=== PATIENT | male | born 1955 | race Caucasian/White ===

== ENCOUNTER → 2016-06-08 | Outpatient (CLI) | payer OTHER ==
[~2016-06-08] MED LIST: ASPI-983 PO; ASPI-999 PO; ATOR80TA64 PO; ATOR80TA76 PO; CLOP75TA28 PO; CLOP75TA69 PO; FENO54TA PO; FLUT9.9S NS; GABA-490 PO; GABA800T2 PO; HCT25T PO; HYDR-707 PO; LISI10TA PO; LISI10TA2 PO; METH500T7 PO; METO-270 PO; METO-351 PO; OMEP40CA36 PO; POTA8TAB6 PO; SIMV80TA3 PO; TRAM50TA2 PO
--- OUTSIDE RECORDS SUMMARY | 2016-06-08 10:03 | XMS REPORT | Continuity of Care Document ---
Author Author [facility] Organization [facility] Address Unknown Phone Unavailable Care Team Providers Care Physician Extender Name Role Phone RENU NEWMAN DO PCP Insurance Providers Payer Name Policy Number Subscriber Name Relationship Self Pay Kailash Newton 18 Self / Same As Patient Advance Directives Directive Response Recorded Date/Time Advance Directives No 02/26/16 2:39pm Health Care Power of Sheetmetal Trades Worker No 02/26/16 2:39pm Organ Donor No 02/26/16 2:39pm Resuscitation Status Full Code 02/26/16 2:39pm Chief Complaint and Reason for Visit Chief Complaint CHEST PAIN CAD S/P CORONARY STENT PLACEMENT Reason for Visit Chest pain Problems Active Problems Medical Problem Onset Date Status Angina at rest Unknown Acute Chest pain Unknown Acute Medications Current Home Medications Medication Dose Units Route Directions Days/Qty Instructions Start Date Fenofibrate (Lofibra) 54 Mg 54 Mg Oral Bedtime 02/23/13 Gabapentin 400 Mg 800 Mg Oral Four Times Daily TAKES 2 (400 MG) CAPSULES 02/05/16 Methocarbamol 500 Mg 500 Mg Oral Daily as needed for Muscle Spasms 02/05/16 Aspirin 81 Mg 81 Mg Oral Daily 02/26/16 Atorvastatin Calcium 80 Mg 80 Mg Oral Bedtime 02/26/16 Clopidogrel Bisulfate 75 Mg 75 Mg Oral Bedtime 02/26/16 Metoprolol Succinate 25 Mg 25 Mg Oral Daily 02/26/16 Tramadol Hcl 50 Mg 50-100 Mg Oral Three Times A Day as needed for Pain 02/26/16 Lisinopril 10 Mg 10 Mg Oral Bedtime 02/26/16 Fluticasone Propionate 9.9 Ml 2 Sprays Nasal Daily as needed for Allergies 02/26/16 Omeprazole 40 Mg 40 Mg Oral Daily as needed for Heartburn 02/26/16 Past Home Medications Medication Directions Ordered Status Gabapentin 800 Mg Tablet, 1 Each Oral Four Times Daily 02/23/13 Discontinued Hydrochlorothiazide 25 Mg Tablet, 25 Mg Oral Daily 02/23/13 Discontinued Potassium Chloride 8 Meq Tablet.sa, 8 Meq Oral Daily 02/23/13 Discontinued Lisinopril 10 Mg Tablet, 10 Mg Oral Daily 02/23/13 Discontinued Simvastatin 80 Mg Tablet, 80 Mg Oral Bedtime 02/23/13 Discontinued Acetaminophen/Hydrocodone Bitart 1 Each Tablet, 1-2 Each Oral Q 4 - 6 Hr Prn as needed for Pain 02/24/13 Discontinued Tramadol Hcl 50 Mg Tablet, 50-100 Mg Oral Three Times A Day as needed for Pain 02/05/16 Discontinued Tramadol Hcl 50 Mg Tablet, 50-100 Mg Oral Three Times A Day as needed for Pain 02/07/16 Discontinued Clopidogrel Bisulfate 75 Mg Tablet, 75 Mg Oral Daily 02/07/16 Discontinued Metoprolol Succinate 25 Mg Tab.er.24h, 25 Mg Oral Daily 02/07/16 Discontinued Aspirin 81 Mg Tab.chew, 81 Mg Oral Daily 02/07/16 Discontinued Atorvastatin Calcium 80 Mg Tablet, 80 Mg Oral Daily 02/07/16 Discontinued Social History Social History Problem Response Recorded Date/Time Alcohol Use Denies Use 02/26/2016 2:39pm Recreational Drug Use Y CIGARETTES 1 PACK/ DAY 02/26/2016 2:39pm Recent Foreign Travel No 02/26/2016 2:39pm Recent Infectious Disease Exposure No 02/26/2016 2:39pm Smoking Status Current Everyday Smoker 02/26/2016 2:39pm Type Used Cigarettes 02/27/2016 5:00pm Recent Hopitalizations No 02/26/2016 2:39pm Query Response Start Date Stop Date Smoking Status Current Everyday Smoker Hospital Discharge Instructions Patient Instructions Physician Instructions Patient Instructions: Follow up appt with Dr. Mathews in one week Care Plan Patient Instructions:: Follow up appt with Dr. Mathews in one week Plan of Care Discharge Date 02/27/16 4:45pm Disposition 01 HOME, SELF-CARE Instructions/Education Provided Chest Pain (DC) Forms Provided Follow-Up Fax Prescriptions See Medication Section Referrals Dr. Mathews (Unspecified) - 1 Week Reason(s) for Referral: Chest pain Care Plan and Goals See Discharge Instructions Section Functional Status Query Response Date Recorded Patient Orientation Person Place Time February 27, 2016 5:00pm Patient Orientation Person Place Time Situation Eyes Open February 27, 2016 5:00pm Comprehension Ability Understands Concepts February 26, 2016 9:00pm Allergies, Adverse Reactions, Alerts Allergen Type Severity Reaction Status Last Updated FLU SHOT Allergy Unknown Active 02/26/16 Immunizations No immunization records. Vital Signs Acute Vital Signs Vital Response Date/Time Temperature (Fahrenheit) 97.0 degrees F (97.6 - 99.5) 02/27/2016 4:28pm Temperature (Calculated Celsius) 36.63784 degrees C (36.4 - 37.5) 02/27/2016 4:28pm Temperature Source Tympanic 02/27/2016 4:28pm Pulse Rate (adult) 71 bpm (60 - 90) 02/27/2016 4:28pm Respiratory Rate 16 bpm (12 - 24) 02/27/2016 4:28pm O2 Sat by Pulse Oximetry 97 % (88 - 100) 02/27/2016 4:28pm Blood Pressure 108/81 mm Hg 02/27/2016 4:28pm Blood Pressure Mean 90 mm Hg 02/27/2016 4:28pm Pain Numeric Pain Scale 0-No Pain 02/27/2016 4:45pm Height (Feet) 5 feet 02/26/2016 2:39pm Height (Inches) 10.00 inches 02/26/2016 2:39pm Height (Calculated Centimeters) 177.975502 cm 02/26/2016 2:39pm Weight (Pounds) 203 pounds 02/27/2016 6:00am Weight (Ounces) 0.0 oz 02/26/2016 2:39pm Weight (Calculated Grams) 66566.252 gm 02/27/2016 6:00am Weight (Calculated Kilograms) 92.399636 kilograms 02/27/2016 6:00am Calculated BMI 29.3 02/26/2016 2:39pm Capillary Refill Capillary Refill Less Than 3 Seconds 02/26/2016 9:00pm Results Laboratory Results Test Name Result Units Flags Reference Collection Date/Time Result Date/ Time Comments White Blood Count 9.4 10^3/uL 4.3-11.0 02/06/2016 4:05am 02/06/2016 4: 52am Red Blood Count 5.47 10^6/uL 4.35-5.85 02/06/2016 4:05am 02/06/2016 4: 52am Hemoglobin 16.4 G/DL 13.3-17.7 02/06/2016 4:05am 02/06/2016 4:52am Hematocrit 47 % 40-54 02/06/2016 4:05am 02/06/2016 4:52am Mean Corpuscular Volume 87 FL 80-99 02/06/2016 4:05am 02/06/2016 4: 52am Mean Corpuscular Hemoglobin 30 PG 25-34 02/06/2016 4:05am 02/06/2016 4: 52am Mean Corpuscular Hemoglobin Concent 35 G/DL 32-36 02/06/2016 4:05am 4:52am Red Cell Distribution Width 12.9 % 10.0-14.5 02/06/2016 4:05am 2015 4:52am Platelet Count 229 10^3/uL 130-400 02/06/2016 4:05am 02/06/2016 4:52am Mean Platelet Volume 11.2 FL H 7.4-10.4 02/06/2016 4:05am 02/06/2016 4: 52am Neutrophils (%) (Auto) 49 % 42-75 02/06/2016 4:05am 02/06/2016 4:52am Lymphocytes (%) (Auto) 32 % 12-44 02/06/2016 4:05am 02/06/2016 4:52am Monocytes (%) (Auto) 10 % 0-12 02/06/2016 4:05am 02/06/2016 4:52am Eosinophils (%) (Auto) 9 % 0-10 02/06/2016 4:05am 02/06/2016 4:52am Basophils (%) (Auto) 0 % 0-10 02/06/2016 4:05am 02/06/2016 4:52am Neutrophils # (Auto) 4.6 X 10^3 1.8-7.8 02/06/2016 4:05am 02/06/2016 4: 52am Lymphocytes # (Auto) 3.0 X 10^3 1.0-4.0 02/06/2016 4:05am 02/06/2016 4: 52am Monocytes # (Auto) 0.9 X 10^3 0.0-1.0 02/06/2016 4:05am 02/06/2016 4: 52am Eosinophils # (Auto) 0.9 10^3/uL H 0.0-0.3 02/06/2016 4:05am 02/06/2016 4 :52am Basophils # (Auto) 0.0 10^3/uL 0.0-0.1 02/06/2016 4:05am 02/06/2016 4: 52am Prothrombin Time 13.9 SEC 12.2-14.7 02/05/2016 3:50pm 02/05/2016 4: 39pm INR Comment 1.1 0.8-1.4 02/05/2016 3:50pm 02/05/2016 4:39pm INTERPRETIVE DATA SUGGESTED THERAPEUTIC RANGE FOR INR'S: VENOUS THROMBOSIS, PULMONARY EMBOLISM, OR PREVENTION OF SYSTEMIC EMBOLISM (EG. IN ATRIAL FIBRILLATION): 2.0 - 3.0 MECHANICAL PROSTHETIC HEART VALVES: 2.5 - 3.5* *NOTE: INR'S UP TO 4.5 MAY BE NECESSARY IN SELECTED GROUPS OF HIGH RISK PATIENTS. [employer] CONSENSUS CONFERENCE ON ANTITHROMBOTIC THERAPY (2000). Activated Partial Thromboplast Time 28 SEC 24-35 02/05/2016 3:50pm 4:39pm D-Dimer < 0.27 UG/ML 0.00-0.49 02/05/2016 3:50pm 02/05/2016 4:39pm Sodium Level 137 MMOL/L 135-145 02/07/2016 4:10am 02/07/2016 5:15am Potassium Level 3.9 MMOL/L 3.6-5.0 02/07/2016 4:10am 02/07/2016 5:15am Chloride Level 105 MMOL/L 98-107 02/07/2016 4:10am 02/07/2016 5:15am Carbon Dioxide Level 22 MMOL/L 21-32 02/07/2016 4:10a02/07/2016 5: 15am Anion Gap 10 MMOL/L 5-14 02/07/2016 4:10a02/07/2016 5:15am Blood Urea Nitrogen 10 MG/DL 7-18 02/07/2016 4:10a02/07/2016 5:15am Creatinine 1.11 MG/DL 0.60-1.30 02/07/2016 4:10a02/07/2016 5:15am BUN/Creatinine Ratio 9 02/07/2016 4:10a02/07/2016 5:15am Estimat Glomerular Filtration Rate > 60 02/07/2016 4:10a2015 5:15am GFR INTERPRETIVE DATA UNITS FOR ESTIMATED GFR (eGFR): mL/min/1.73 M2 REFERENCE RANGE FOR ESTIMATED GFR (eGFR) eGFR NORMAL eGFR >60 MODERATELY DECREASED eGFR 30-59 SEVERLY DECREASED eGFR 15-29 KIDNEY FAILURE <15 (OR DIALYSIS) Glucose Level 90 MG/DL 70-105 02/07/2016 4:10a02/07/2016 5:15am Calcium Level 8.5 MG/DL 8.5-10.1 02/07/2016 4:10a02/07/2016 5:15am Magnesium Level 1.7 MG/DL L 1.8-2.4 02/07/2016 4:10a02/07/2016 5:15am Total Bilirubin 0.6 MG/DL 0.1-1.0 02/06/2016 4:05am 02/06/2016 5:20am Alkaline Phosphatase 42 U/L 40-136 02/06/2016 4:05am 02/06/2016 5:20am Aspartate Amino Transf (AST/SGOT) 28 U/L 5-34 02/06/2016 4:05am 2015 5:20am Alanine Aminotransferase (ALT/SGPT) 31 U/L 0-55 02/06/2016 4:05am 02/05 5:20am Total Creatine Kinase 132 U/L 30-200 02/05/2016 3:50pm 02/05/2016 4: 35pm Creatine Kinase MB 1.7 NG/ML <6.6 02/05/2016 3:50pm 02/05/2016 4:43pm Troponin I < 0.30 NG/ML <0.30 02/05/2016 3:50pm 02/05/2016 4:43pm Myoglobin 61.8 NG/ML 10.0-92.0 02/05/2016 3:50pm 02/05/2016 4:43pm Total Protein 6.7 G/DL 6.4-8.2 02/06/2016 4:05am 02/06/2016 5:20am Albumin 4.0 G/DL 3.2-4.5 02/06/2016 4:05am 02/06/2016 5:20am Triglycerides Level 132 MG/DL <150 02/06/2016 4:05am 02/06/2016 5:20am Cholesterol Level 135 MG/DL < 200 02/06/2016 4:05am 02/06/2016 5:20am HDL Cholesterol 29 MG/DL L 40-60 02/06/2016 4:05am 02/06/2016 5:20am LDL Cholesterol Direct 95 MG/DL 1-129 02/06/2016 4:05am 02/06/2016 5: 20am VLDL Cholesterol 26 MG/DL 5-40 02/06/2016 4:05am 02/06/2016 5:20am Thyroid Stimulating Hormone (TSH) 3.36 UIU/ML 0.35-4.94 02/06/2016 4: 05am 02/06/2016 5:43am Pending Laboratory Results Test Name Collection Date/Time Procedures Procedure Status Date Provider(s) Tracing only of electrocardiogram Completed 02/05/16 RENU NEWMAN DO Tracing only of electrocardiogram Completed 02/05/16 ARIADNA MATHEWS MD, FACP FACC CCDS Color Doppler echocardiography Active 02/05/16 ARIADNA MATHEWS MD, FACP FACC CCDS Tracing only of electrocardiogram Completed 02/26/16 PERLA REYES MD Tracing only of electrocardiogram Active 02/26/16 ARIADNA MATHEWS MD, FACP FACC CCDS Tracing only of electrocardiogram Active 02/26/16 ARIADNA MATHEWS MD, FACP FACC CCDS Color Doppler echocardiography Active 02/26/16 ARIADNA MATHEWS MD, FACP FACC CCDS Encounters Encounter Location Arrival/Admit Date Discharge/Depart Date Attending Provider Discharged Inpatient (obs) [facility] 02/26/16 2:18pm 4:45pm SAILAJA, ALI FACP CCDS MD FACC Dep[facility]ed [facility] 02/05/16 3:30pm 9:45am RENU NEWMAN DO Recent Diagnosis Chest pain
[2016-06-08 10:40] LABS: ALBUMIN 4.2 G/DL (3.2-4.5); BILIRUBIN,TOTAL 1.1 MG/DL (0.1-1.0); CALCIUM 9.7 MG/DL (8.5-10.1); CREATININE SERUM 1.25 MG/DL (0.60-1.30); MAGNESIUM 1.7 MG/DL (1.8-2.4); POTASSIUM 3.7 MMOL/L (3.6-5.0); TOTAL PROTEIN 7.5 G/DL (6.4-8.2)
== END ==
LOC: LAB 10:00
PROVIDERS: ATTEND Internal Medicine Cardiovascular Disease
DX: I10 Essential (primary) hypertension (principal); I25.10 Atherosclerotic heart disease of native coronary artery without angina pectoris; I65.23 Occlusion and stenosis of bilateral carotid arteries; Z72.0 Tobacco use
CPT/HCPCS: 36415; 80053; 80061; 83735

== ENCOUNTER → 2016-06-15 | Outpatient (CLI) | payer OTHER ==
[2016-06-15 11:09] LABS: BASOPHILS % (AUTO) 0 % (0-10); EOSINOPHILS # (AUTO) 0.8 10^3/uL (0.0-0.3); EOSINOPHILS % (AUTO) 7 % (0-10); LYMPHOCYTES # (AUTO) 1.6 X 10^3 (1.0-4.0); LYMPHOCYTES % (AUTO) 14 % (12-44); MEAN CORPUSCULAR HEMOGLOBIN 29 PG (25-34); MEAN CORPUSCULAR HGB CONC 35 G/DL (32-36); MEAN CORPUSCULAR VOLUME 85 FL (80-99); MEAN PLATELET VOLUME 10.5 FL (7.4-10.4); MONOCYTES # (AUTO) 0.8 X 10^3 (0.0-1.0); MONOCYTES % (AUTO) 7 % (0-12); NEUTROPHILS # (AUTO) 8.4 X 10^3 (1.8-7.8); NEUTROPHILS % (AUTO) 72 % (42-75); PLATELET COUNT 292 10^3/uL (130-400); RED BLOOD COUNT 5.56 10^6/uL (4.35-5.85); RED CELL DISTRIBUTION WIDTH 13.1 % (10.0-14.5); WHITE BLOOD COUNT 11.7 10^3/uL (4.3-11.0)
== END ==
LOC: LAB 10:48
PROVIDERS: ATTEND Internal Medicine
DX: Z00.00 Encounter for general adult medical examination without abnormal findings (principal); R73.9 Hyperglycemia, unspecified
CPT/HCPCS: 36415; 83036; 84443; 85025

== ENCOUNTER → 2019-10-08 | Outpatient (CLI) | payer BC, OTHER ==
[~2019-10-08] VITALS: Ht 175 cm; Wt 89.0 kg
[~2019-10-08] MED LIST changes: +CATHETER FLUSH 10 ML SYR IV PRN; -METO-270 PO; +MTP25TSR PO; +OMEP40CA27 PO; -OMEP40CA36 PO; +REGADENOSON 0.4 MG/5 ML SYR (LEXISCAN) IV ONE; -TRAM50TA2 PO; +TRM50T PO
[2019-10-08 08:57] VITALS: BP 119/64
--- NOTE | 2019-10-08 12:28 | STRESS TEST ---
DATE OF SERVICE: 10/08/2019 RESTING AND POST REGADENOSON TECHNETIUM-99M TETROFOSMIN SPECT CT IMAGING ORDERING PHYSICIAN: Dr. Mathews. PRIMARY PHYSICIAN: Dr. Serna. CLINICAL DIAGNOSES: Coronary artery disease. Baseline images were carried out after injection of 10.1 mCi of technetium-99m Tetrofosmin. This was followed by 0.4 mg Regadenoson and 29.7 mCi of technetium-99m Tetrofosmin for stress imaging. The electrocardiogram showed sinus rhythm. There was nonspecific intraventricular conduction delay. The electrocardiogram did not change significantly with Regadenoson infusion. He noted some shortness of breath following Regadenoson infusion, which resolved in a few minutes. Review of images at rest and following stress indicates a small predominantly fixed inferoapical perfusion defect. Gated images show normal global left ventricular systolic function and the regional wall motion appears to be normal, as well. CONCLUSIONS: 1. This study is suggestive of a small inferoapical infarction with a mild rachel-infarct ischemia. 2. Normal global left ventricular systolic function with no significant regional wall motion abnormality and with a calculated ejection fraction of 66%. Job ID: [id number] DocumentID: [id number] Dictated Date: 10/08/2019 10:26:03 Table Cut Off Saw Operator Date: 10/08/2019 12:27:15 Dictated By: ARIADNA MATHEWS MD, MA, FACP, FACC,
== END ==
LOC: CARD 07:28
PROVIDERS: ATTEND Internal Medicine Cardiovascular Disease
DX: I25.10 Atherosclerotic heart disease of native coronary artery without angina pectoris (principal); I65.29 Occlusion and stenosis of unspecified carotid artery; I10 Essential (primary) hypertension; Z86.79 Personal history of other diseases of the circulatory system; Z72.0 Tobacco use
CPT/HCPCS: 78452; 93017; A9502

== ENCOUNTER 2019-12-23 18:48 | Observation (INO) | payer BC ==
[~2019-12-23] VITALS: Ht 179 cm; Wt 82.5 kg
[~2019-12-23 18:48] MED LIST changes: +ASPI-1238 PO; -ASPI-983 PO; -CATHETER FLUSH 10 ML SYR IV PRN; -REGADENOSON 0.4 MG/5 ML SYR (LEXISCAN) IV ONE
[2019-12-23] MEDS ORDERED: ASPIRIN 81 MG CHEW (CHILDREN'S ASA) PO ONE (19:00)
[2019-12-23] MEDS ORDERED: NITROGLYCERIN 0.4 MG SL TABS BTL 25'S SL PRN ×2 (19:30→21:45)
[2019-12-23 19:38] LABS: BASOPHILS % (AUTO) 0 % (0-10); EOSINOPHILS # (AUTO) 0.4 10^3/uL (0.0-0.3); EOSINOPHILS % (AUTO) 3 % (0-10); HEMATOCRIT 51 % (40-54); HEMOGLOBIN 16.7 g/dL (13.3-17.7); LYMPHOCYTES # (AUTO) 2.3 10^3/uL (1.0-4.0); LYMPHOCYTES % (AUTO) 20 % (12-44); MEAN CORPUSCULAR HEMOGLOBIN 29 pg (25-34); MEAN CORPUSCULAR HGB CONC 33 g/dL (32-36); MEAN CORPUSCULAR VOLUME 89 fL (80-99); MEAN PLATELET VOLUME 10.5 fL (9.0-12.2); MONOCYTES # (AUTO) 0.5 10^3/uL (0.0-1.0); MONOCYTES % (AUTO) 4 % (0-12); NEUTROPHILS # (AUTO) 8.2 10^3/uL (1.8-7.8); NEUTROPHILS % (AUTO) 72 % (42-75); PLATELET COUNT 243 10^3/uL (130-400); WHITE BLOOD COUNT 11.3 10^3/uL (4.3-11.0)
[2019-12-23 19:50] LABS: PROTHROMBIN TIME PATIENT 13.8 SEC (12.2-14.7)
--- NOTE | 2019-12-23 20:00 | Diagnostic Imaging Report ---
PATIENT HISTORY: Chest pain. TECHNIQUE: Single frontal view of the chest. COMPARISON: 02/26/2016 FINDINGS: The lung volumes are normal. No focal consolidation is seen. No large pleural effusion or pneumothorax is seen. The cardiomediastinal silhouette is normal in size and contour. No acute osseous abnormality is seen. IMPRESSION: No acute pulmonary abnormality seen. Dictated by: Dictated on workstation # [id number]
[2019-12-23 20:06] LABS: ALANINE AMINOTRANSFERASE 29 U/L (0-55); ALBUMIN 4.4 GM/DL (3.2-4.5); ALKALINE PHOSPHATASE 81 U/L (40-136); BILIRUBIN,TOTAL 0.7 MG/DL (0.1-1.0); BUN/CREATININE RATIO 5; CALCIUM 9.2 MG/DL (8.5-10.1); CARBON DIOXIDE 23 MMOL/L (21-32); CHLORIDE 105 MMOL/L (98-107); GFR ESTIMATED > 60; GLUCOSE 100 MG/DL (70-105); MAGNESIUM 1.6 MG/DL (1.6-2.4); POTASSIUM 3.4 MMOL/L (3.6-5.0); SODIUM 142 MMOL/L (135-145); TOTAL PROTEIN 8.2 GM/DL (6.4-8.2)
--- NOTE | 2019-12-23 20:46 | ED Chest Pain ---
General Chief Complaint: Chest Pain Stated Complaint: CHEST PAIN;CHEST PRESSURE Nursing Triage Note: TO ED VIA POV AND AMBULATORY TO ROOM 4 WITH C/O CHEST PRESSURE SINCE YESTERDAY. Nursing Sepsis Screen: No Definite Risk Source: patient Exam Limitations: no limitations History of Present Illness Date Seen by Provider: Dec 23, 2019 Time Seen by Provider: 19:00 Initial Comments This 64-year-old gentleman presents to the emergency room with complaints of chest pressure that he first noticed yesterday. Earlier today he had a sharp pain in the central chest which then subsided to a chest pressure which is present now at about a 3/10 intensity. He has a history of coronary artery disease and coronary stent placement. He had a stress test performed in September and reports Dr. Mathews had recommended coronary angiography after that stress test. The heart catheter was delayed due to need for a prostate surgery. Patient also reports new cough and shortness of breath that just started today. He is afebrile. Allergies and Home Medications Allergies Coded Allergies: Influenza Virus Vaccines (Unverified Allergy, Unknown, 02/28/16) Home Medications Aspirin 81 Mg Tablet.dr, 81 MG PO DAILY, (Reported) Atorvastatin Calcium 80 Mg Tablet, 80 MG PO HS, (Reported) Clopidogrel Bisulfate 75 Mg Tablet, 75 MG PO HS, (Reported) Fenofibrate 54 Mg Tablet, 54 MG PO HS, (Reported) Fluticasone Propionate 9.9 Ml [place].susp, 2 SPRAYS NS DAILY PRN for ALLERGIES, (Reported) Gabapentin 400 Mg Capsule, 800 MG PO QID, (Reported) TAKES 2 (400 MG) CAPSULES Lisinopril 10 Mg Tablet, 10 MG PO HS, (Reported) Methocarbamol 500 Mg Tablet, 500 MG PO DAILY PRN for MUSCLE SPASMS, (Reported) Metoprolol Succinate 25 Mg Tab.er.24h, 25 MG PO DAILY, (Reported) Omeprazole 40 Mg Capsule.dr, 40 MG PO DAILY PRN for HEARTBURN, (Reported) Tramadol HCl 50 Mg Tablet, 50-100 MG PO TID PRN for PAIN, (Reported) Patient Home Medication List Home Medication List Reviewed: Yes Review of Systems Review of Systems Constitutional: no symptoms reported EENTM: No Symptoms Reported Respiratory: See HPI Cardiovascular: See HPI Gastrointestinal: No Symptoms Reported Genitourinary: No Symptoms Reported Musculoskeletal: no symptoms reported Skin: no symptoms reported Psychiatric/Neurological: No Symptoms Reported Endocrine: No Symptoms Reported Past Hxuqmvq-Swacka-Sfypyf Hx Past Med/Social Hx: Reviewed Nursing Past Med/Soc Hx Patient Social History Alcohol Use: Denies Use Recreational Drug Use: No Smoking Status: Current Everyday Smoker Type Used: Cigarettes Recent Foreign Travel: No Contact w/Someone Who Travel: No Recent Infectious Disease Expo: No Recent Hopitalizations: No Physical Abuse: No Sexual Abuse: No Mistreated: No Fear: No Seasonal Allergies Seasonal Allergies: No Past Medical History Surgeries: Yes (RIGHT ear reconstruction; CARDIAC STENT, PROSTATE) Coronary Stent Respiratory: No Cardiac: Yes Coronary Artery Disease, High Cholesterol, Hypertension Neurological: Yes ([place] 2007) Genitourinary: Yes Prostate Problems Gastrointestinal: No Musculoskeletal: No Endocrine: No HEENT: No Cancer: No Skin Psychosocial: No Integumentary: No Blood Disorders: No Family Medical History No Pertinent Family Hx Physical Exam Vital Signs Vital Signs - First Documented 12/23/19 19:10 Temp 36.5 Pulse 59 Resp 16 B/P (MAP) 141/79 (99) O2 Delivery Room Air Capillary Refill : Less Than 3 Seconds Height, Weight, BMI Height: 5'10.00" Weight: 203lbs. 0.0oz. 92.405308sz; 26.00 BMI Method:Stated General Appearance: No Apparent Distress, WD/WN HEENT: PERRL/EOMI, Normal ENT Inspection Neck: Normal Inspection Respiratory: Chest Non Tender, Lungs Clear, Normal Breath Sounds, No Accessory Muscle Use, No Respiratory Distress Cardiovascular: Regular Rate, Rhythm, No Edema, No Murmur Gastrointestinal: Normal Bowel Sounds, Non Tender, Soft Extremity: Normal Inspection, Non Tender, No Pedal Edema Neurologic/Psychiatric: Alert, Oriented x3, No Motor/Sensory Deficits, Normal Mood/Affect, mailroom coordinator II-XII Norm as Tested Skin: Normal Color, Warm/Dry Progress/Results/Core Measures Results/Orders Lab Results Laboratory Tests Test 12/23/19 19:25 12/23/19 19:28 12/23/19 20:05 Range/Units Coronavirus 2019 (DANILO) Negative Negative White Blood Count 11.3 H 4.3-11.0 10^3/uL Red Blood Count 5.68 H 4.30-5.52 10^6/uL Hemoglobin 16.7 13.3-17.7 g/dL Hematocrit 51 40-54 % Mean Corpuscular Volume 89 80-99 fL Mean Corpuscular Hemoglobin 29 25-34 pg Mean Corpuscular Hemoglobin Concent 33 32-36 g/dL Red Cell Distribution Width 12.9 10.0-14.5 % Platelet Count 243 130-400 10^3/uL Mean Platelet Volume 10.5 9.0-12.2 fL Immature Granulocyte % (Auto) 0 % Neutrophils (%) (Auto) 72 42-75 % Lymphocytes (%) (Auto) 20 12-44 % Monocytes (%) (Auto) 4 0-12 % Eosinophils (%) (Auto) 3 0-10 % Basophils (%) (Auto) 0 0-10 % Neutrophils # (Auto) 8.2 H 1.8-7.8 10^3/uL Lymphocytes # (Auto) 2.3 1.0-4.0 10^3/uL Monocytes # (Auto) 0.5 0.0-1.0 10^3/uL Eosinophils # (Auto) 0.4 H 0.0-0.3 10^3/uL Basophils # (Auto) 0.0 0.0-0.1 10^3/uL Immature Granulocyte # (Auto) 0.0 0.0-0.1 10^3/uL Prothrombin Time 13.8 12.2-14.7 SEC INR Comment 1.0 0.8-1.4 Activated Partial Thromboplast Time 29 24-35 SEC D-Dimer 0.36 0.00-0.49 UG/ML Sodium Level 142 135-145 MMOL/L Potassium Level 3.4 L 3.6-5.0 MMOL/L Chloride Level 105 98-107 MMOL/L Carbon Dioxide Level 23 21-32 MMOL/L Anion Gap 14 5-14 MMOL/L Blood Urea Nitrogen 5 L 7-18 MG/DL Creatinine 1.10 0.60-1.30 MG/DL Estimat Glomerular Filtration Rate > 60 BUN/Creatinine Ratio 5 Glucose Level 100 70-105 MG/DL Calcium Level 9.2 8.5-10.1 MG/DL Corrected Calcium 8.9 8.5-10.1 MG/DL Magnesium Level 1.6 1.6-2.4 MG/DL Total Bilirubin 0.7 0.1-1.0 MG/DL Aspartate Amino Transf (AST/SGOT) 29 5-34 U/L Alanine Aminotransferase (ALT/SGPT) 29 0-55 U/L Alkaline Phosphatase 81 40-136 U/L Lactate Dehydrogenase 177 125-220 U/L Myoglobin 42.1 10.0-92.0 NG/ML Troponin I < 0.028 <0.028 NG/ML C-Reactive Protein High Sensitivity 0.06 0.00-0.50 MG/DL B-Type Natriuretic Peptide 33.3 <100.0 PG/ML Total Protein 8.2 6.4-8.2 GM/DL Albumin 4.4 3.2-4.5 GM/DL My Orders Orders - PEDRITO CAPELLAN MD Hs C Reactive Protein (12/23/19 19:28) LDH (12/23/19 19:28) Covid 19 Inhouse Test (12/23/19 19:28) Nitroglycerin 0.4 Mg Btl 25's (Nitrostat (12/23/19 19:30) Coronavirus Sars-Cov-2 So 2018 (12/23/19 20:00) Medications Given in ED Current Medications Medications Dose Ordered Sig/Gilda Route Start Time Stop Time Status Last Admin Dose Admin Aspirin 324 mg ONCE ONCE PO 12/23/19 19:00 12/23/19 19:01 DC 12/23/19 19:21 324 MG Vital Signs/I&O 12/23/19 12/23/19 19:10 19:10 Temp 36.5 Pulse 59 Resp 16 B/P (MAP) 141/79 (99) O2 Delivery Room Air Room Air Blood Pressure Mean: 99 Progress Progress Note : Progress Note Workup was unremarkable. Chest pain gradually subsided and was rated as 1/10 at the time of admission. Nitroglycerin was not administered as blood pressure was only in the 110s systolic. Case was discussed with Dr. Mathews who recommended admission based on his history of coronary artery disease and the previous recommendation for heart catheter after stress test. Because of new cough and shortness of breath today, a rapid COVID 19 test was performed. The rapid test was negative and is being followed by the PCR test. Aspirin was administered. Initial ECG Impression Date: Dec 23, 2019 Initial ECG Impression Time: 19:13 Initial ECG Rate: 59 Initial ECG Rhythm: Normal Sinus Comment Sinus rhythm with no ST elevation or depression. Incomplete right bundle branch block. No axis deviation. Diagnostic Imaging Diagonstic Imaging: Xray Plain Films/CT/US/NM/MRI: chest Comments NAME: KAILASH NEWTON [facility] REC#: [id number] PT STATUS: REG ER : 1955 PHYSICIAN: ANA JIMENEZ APRN ADMIT DATE: 12/23/19/ER Signed Date of Exam:12/23/19 CHEST 1 VIEW, AP/PA ONLY PATIENT HISTORY: Chest pain. TECHNIQUE: Single frontal view of the chest. COMPARISON: 02/26/2016 FINDINGS: The lung volumes are normal. No focal consolidation is seen. No large pleural effusion or pneumothorax is seen. The cardiomediastinal silhouette is normal in size and contour. No acute osseous abnormality is seen. IMPRESSION: No acute pulmonary abnormality seen. Dictated by: Dictated on workstation # [id number] Dict: 12/23/191957 Trans: 12/23/191958 [id number] Interpreted by: SARA SHEARER MD Electronically signed by: SARA SHEARER MD 12/23/191958 Departure Communication (Admissions) Time/Spoke to Admitting Phy: 20:30 Dr. Newman Time/Spoke to Consulting Phy: 20:30 Dr. Mathews Impression Primary Impression: Chest pain Qualified Codes: R07.9 - Chest pain, unspecified Additional Impressions: Person under investigation for COVID-19 Coronary artery disease Qualified Codes: I25.10 - Atherosclerotic heart disease of [place] coronary artery without angina pectoris Disposition: ADMITTED INPATIENT Condition: Improved Admissions Decision to Admit Reason: Admit from ER (General) Decision to Admit/Date: Dec 23, 2019 Time/Decision to Admit Time: 20:30 Departure-Patient Inst. Referrals: RENU NEWMAN DO (PCP/Family) Primary Care Physician PEDRITO CAPELLAN MD Dec 23, 2019 20:46
[2019-12-23] MEDS ORDERED: ONDANSETRON 4 MG/2 ML (SDV) Z0FRAN IV PRN (21:45)
[2019-12-23] MEDS ORDERED: PATIENT MAY USE OWN MEDS, ALL PO SCH (21:45)
[2019-12-23] MEDS ORDERED: morphine INJ 4 MG/ML 1 ML (VIAL/SYRINGE) IV PRN (21:45)
[2019-12-23 21:48] VITALS: BP 124/71
[2019-12-23] MEDS ORDERED: GABAPENTIN 400 MG (NEURONTIN) CAP ONE (23:01)
[2019-12-23 23:10] VITALS: BP 119/68
[2019-12-23] MEDS: GABAPENTIN 400 MG (NEURONTIN) CAP PO SCH (23:11)
[2019-12-24 03:33] LABS: BASOPHILS % (AUTO) 0 % (0-10); EOSINOPHILS # (AUTO) 0.4 10^3/uL (0.0-0.3); EOSINOPHILS % (AUTO) 5 % (0-10); HEMATOCRIT 45 % (40-54); HEMOGLOBIN 14.7 g/dL (13.3-17.7); LYMPHOCYTES % (AUTO) 35 % (12-44); MEAN CORPUSCULAR HEMOGLOBIN 29 pg (25-34); MEAN CORPUSCULAR HGB CONC 33 g/dL (32-36); MEAN CORPUSCULAR VOLUME 89 fL (80-99); MEAN PLATELET VOLUME 11.2 fL (9.0-12.2); MONOCYTES # (AUTO) 0.7 10^3/uL (0.0-1.0); MONOCYTES % (AUTO) 8 % (0-12); NEUTROPHILS # (AUTO) 4.5 10^3/uL (1.8-7.8); NEUTROPHILS % (AUTO) 52 % (42-75); PLATELET COUNT 196 10^3/uL (130-400); WHITE BLOOD COUNT 8.6 10^3/uL (4.3-11.0)
[2019-12-24 03:53] LABS: CHLORIDE 107 MMOL/L (98-107); POTASSIUM 3.8 MMOL/L (3.6-5.0); SODIUM 139 MMOL/L (135-145)
[2019-12-24 03:55] LABS: CALCIUM 8.6 MG/DL (8.5-10.1); TRIGLYCERIDES 136 MG/DL (<150); VLDL CHOLESTEROL 27 MG/DL (5-40)
[2019-12-24 03:56] LABS: GLUCOSE 97 MG/DL (70-105)
[2019-12-24 03:57] LABS: CARBON DIOXIDE 23 MMOL/L (21-32)
[2019-12-24 03:59] LABS: GFR ESTIMATED > 60
[2019-12-24 04:00] VITALS: BP 116/68
[2019-12-24 04:00] LABS: BUN/CREATININE RATIO 8; CHOLESTEROL 114 MG/DL (< 200)
[2019-12-24 04:01] LABS: HDL CHOLESTEROL 25 MG/DL (40-60)
[2019-12-24 07:57] VITALS: BP 125/77
--- NOTE | 2019-12-24 07:58 | Consultation-Cardiology ---
HPI-Cardiology Cardiology Consultation: Date of Consultation 12/24/19 Date of Admission Attending Physician Veronica Serna DO Admitting Physician Veronica Serna DO Consulting Physician GLO LANDAVERDE OMZ-Gypivj-Vluyhh Hx Patient Social History Alcohol Use: Denies Use Recreational Drug Use: No Smoking Status: Current Everyday Smoker Type Used: Cigarettes Recent Foreign Travel: No Recent Infectious Disease Expo: No Hospitalization with Isolation: Denies Past Medical History PMH As described under Assessment. Family Medical History Family Medical History: Father had CABG when he was in his late 40s Allergies and Home Medications Allergies Coded Allergies: Influenza Virus Vaccines (Unverified Allergy, Unknown, 02/28/16) Home Medications Aspirin 81 Mg Tablet.dr, 81 MG PO DAILY, (Reported) Atorvastatin Calcium 10 Mg Tablet, 10 MG PO HS, (Reported) Fluticasone Propionate 9.9 Ml [place].susp, 2 SPRAYS NS DAILY PRN for ALLERGIES, (Reported) Gabapentin 400 Mg Capsule, 800 MG PO QID, (Reported) TAKES 2 (400 MG) CAPSULES Lisinopril 10 Mg Tablet, 10 MG PO HS, (Reported) Physical Exam-Cardiology Physical Exam Vital Signs/I&O Capillary Refill : Less Than 3 Seconds Data Review Labs Radiology NAME: KAILASH NEWTON [facility] REC#: [id number] PT STATUS: REG ER : 1955 PHYSICIAN: ANA JIMENEZ APRN ADMIT DATE: 12/23/19/ER Signed Date of Exam:12/23/19 CHEST 1 VIEW, AP/PA ONLY PATIENT HISTORY: Chest pain. TECHNIQUE: Single frontal view of the chest. COMPARISON: 02/26/2016 FINDINGS: The lung volumes are normal. No focal consolidation is seen. No large pleural effusion or pneumothorax is seen. The cardiomediastinal silhouette is normal in size and contour. No acute osseous abnormality is seen. IMPRESSION: No acute pulmonary abnormality seen. Dictated by: Dictated on workstation # [id number] Dict: 12/23/191957 Trans: 12/23/191958 [id number] Interpreted by: SARA SHEARER MD Electronically signed by: SARA SHEARER MD 12/23/191958 A/P-Cardiology Assessment/Admission Diagnosis Chest pain of undetermined etiology Coronary artery disease. Card cath of 02/06/16 showed CAD primarily consisting of 80% proximal and mid vessel stenosis of the left anterior descending artery to which successful stenting was carried out using Alpine Xience 2.25 x 12 mm stent that reduced the stenosis to 0% residual. The left circumflex and ramus intermedius arteries have mild to moderate disease. Right coronary is dominant and has 50% distal stenosis, LVEF 60%, normal LVEDP, no MR. MPI of October 08, 2019 is suggestive of a small inferoapical infarction with mild rachel-infarct ischemia. 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 Currently smoking 1 ppd H/o Guillian-[place] in 2007 Bilat foot discomfort, diagnosed as peripheral neuropathy H/o hypokalemia on HCTZ Clinical Quality Measures AMI/AHF: ASA po Prior to arrival: No DVT/VTE Risk/Contraindication: Risk Factor Score Per Nursin RFS Level Per Nursing on Admit: 3=High GLO PINK Dec 24, 2019 07:58
[2019-12-24] MEDS ORDERED: ASPIRIN E.C. 81 MG (ECOTRIN) TAB PO SCH (09:00)
[2019-12-24] MEDS: GABAPENTIN 400 MG (NEURONTIN) CAP PO SCH (09:17)
--- NOTE | 2019-12-24 09:57 | Cardiology History & Physical ---
HPI-Cardiology Cardiology H&P Date of Admission 12/23/19 Primary Care Physician Veronica Serna DO Attending Physician Alisson Menard MD, MA FACP [facility] Consulting Physician STEFANO CC: Chest discomfort HPI: 64 yo man admitted through ER yesterday evening with two days of continuous discomfort, R & L parasternal, mild to mod, unrelated to exertion, pressure like, w/o aggravating or relieving factors, w/o radiation. This has gradually dissipated. He feels well now and wishes to go home. He denies shortness of breath or palp or syncope or swelling. Review of Systems-Cardiology Review of Systems Constitutional: No weight loss, No weight gain Eyes: No vision change Ears/Nose/Throat: No ear discharge, No nasal drainage, No recent hearing loss Respiratory: As described under HPI Cardiovascular: As described under HPI Gastrointestinal: No diarrhea, No nausea, No vomiting Genitourinary: No dysuria, No hematuria, No urine frequency changes Musculoskeletal: No back pain, No joint pain Skin: No rash on exposed areas, No ulcerations on exposed areas Psychiatric/Neurological: No seizure, No focal weakness, No syncope Hematologic: No bleeding abnormalities [id number] Hx Patient Social History Alcohol Use: Denies Use Recreational Drug Use: No Smoking Status: Current Everyday Smoker Type Used: Cigarettes Recent Foreign Travel: No Recent Infectious Disease Expo: No Hospitalization with Isolation: Denies Past Medical History PMH As described under Assessment. Family Medical History Family Medical History: Father had CABG when he was in his late 40s Allergies and Home Medications Allergies Coded Allergies: Influenza Virus Vaccines (Unverified Allergy, Unknown, 02/28/16) Home Medications Aspirin 81 Mg Tablet.dr, 81 MG PO DAILY, (Reported) Atorvastatin Calcium 80 Mg Tablet, 80 MG PO HS, (Reported) Clopidogrel Bisulfate 75 Mg Tablet, 75 MG PO HS, (Reported) Fenofibrate 54 Mg Tablet, 54 MG PO HS, (Reported) Fluticasone Propionate 9.9 Ml [place].susp, 2 SPRAYS NS DAILY PRN for ALLERGIES, (Reported) Gabapentin 400 Mg Capsule, 800 MG PO QID, (Reported) TAKES 2 (400 MG) CAPSULES Lisinopril 10 Mg Tablet, 10 MG PO HS, (Reported) Methocarbamol 500 Mg Tablet, 500 MG PO DAILY PRN for MUSCLE SPASMS, (Reported) Metoprolol Succinate 25 Mg Tab.er.24h, 25 MG PO DAILY, (Reported) Omeprazole 40 Mg Capsule.dr, 40 MG PO DAILY PRN for HEARTBURN, (Reported) Tramadol HCl 50 Mg Tablet, 50-100 MG PO TID PRN for PAIN, (Reported) Patient Home Medication List Home Medication List Reviewed: Yes Physical Exam-Cardiology Physical Exam Vital Signs/I&O 12/23/19 12/23/19 12/24/19 12/24/19 22:36 23:10 00:00 01:00 Temp 36.3 Pulse 52 46 Resp 18 B/P (MAP) 119/68 (85) Pulse Ox 98 98 O2 Delivery Room Air Room Air Room Air 12/24/19 12/24/19 12/24/19 12/24/19 04:00 04:00 07:00 07:57 Temp 37.0 36.7 Pulse 54 52 52 Resp 18 16 B/P (MAP) 116/68 (84) 125/77 (93) Pulse Ox 94 96 O2 Delivery Room Air Room Air Room Air 12/24/19 12/24/19 08:00 08:27 Pulse Ox 96 O2 Delivery Room Air Room Air 12/24/19 00:00 Intake Total 120 ml Output Total 150 ml Balance -30 ml Capillary Refill : Less Than 3 Seconds Constitutional: AAO x 3, well-developed, well-nourished HEENT: EOMI, hearing is well preserved; No xanthelasmas are seen Neck: No carotid bruit; carotid pulses are 2 + bilaterally, with good upstrokes Respiratory: No accessory muscle use; other (good bilat air entry) Cardiovascular: regular rate-rhythm, S1 and S2, systolic murmur (faint LANETTE at card base) Gastrointestinal: No tender; soft; No guarding, No rebound; audible bowel sounds Extremities: No clubbing, No cyanosis, No significant edema Neurologic/Psychiatric: oriented x 3, other (moves all limbs equally) Skin: No rash on exposed areas, No ulcerations on exposed areas Data Review Labs Laboratory Tests 12/23/19 19:25: Coronavirus 2019 (DANILO) Negative 12/23/19 19:28: White Blood Count 11.3H, Red Blood Count 5.68H, Hemoglobin 16.7, Hematocrit 51, Mean Corpuscular Volume 89, Mean Corpuscular Hemoglobin 29, Mean Corpuscular Hemoglobin Concent 33, Red Cell Distribution Width 12.9, Platelet Count 243, Mean Platelet Volume 10.5, Immature Granulocyte % (Auto) 0, Neutrophils (%) (Auto) 72, Lymphocytes (%) (Auto) 20, Monocytes (%) (Auto) 4, Eosinophils (%) (Auto) 3, Basophils (%) (Auto) 0, Neutrophils # (Auto) 8.2H, Lymphocytes # (Auto) 2.3, Monocytes # (Auto) 0.5, Eosinophils # (Auto) 0.4H, Basophils # (Auto) 0.0, Immature Granulocyte # (Auto) 0.0, Prothrombin Time 13.8, INR C omment 1.0, Activated Partial Thromboplast Time 29, D-Dimer 0.36, Sodium Level 142, Potassium Level 3.4L, Chloride Level 105, Carbon Dioxide Level 23, Anion Gap 14, Blood Urea Nitrogen 5L, Creatinine 1.10, Estimat Glomerular Filtration Rate > 60, BUN/Creatinine Ratio 5, Glucose Level 100, Calcium Level 9.2, Corrected Calcium 8.9, Magnesium Level 1.6, Total Bilirubin 0.7, Aspartate Amino Transf (AST/SGOT) 29, Alanine Aminotransferase (ALT/SGPT) 29, Alkaline Phosphatase 81, Lactate Dehydrogenase 177, Myoglobin 42.1, Troponin I < 0.028, C-Reactive Protein High Sensitivity 0.06, B-Type Natriuretic Peptide 33.3, Total Protein 8.2, Albumin 4.4 12/23/19 20:05: 12/23/19 23:54: Troponin I < 0.028 12/24/19 03:05: White Blood Count 8.6, Red Blood Count 5.01, Hemoglobin 14.7, Hematocrit 45, Mean Corpuscular Volume 89, Mean Corpuscular Hemoglobin 29, Mean Corpuscular Hemoglobin Concent 33, Red Cell Distribution Width 13.0, Platelet Count 196, Mean Platelet Volume 11.2, Immature Granulocyte % (Auto) 0, Neutrophils (%) (Auto) 52, Lymphocytes (%) (Auto) 35, Monocytes (%) (Auto) 8, Eosinophils (%) (Auto) 5, Basophils (%) (Auto) 0, Neutrophils # (Auto) 4.5, Lymphocytes # (Auto) 3.0, Monocytes # (Auto) 0.7, Eosinophils # (Auto) 0.4H, Basophils # (Auto) 0.0, Immature Granulocyte # (Auto) 0.0, Sodium Level 139, Potassium Level 3.8, Chloride Level 107, Carbon Dioxide Level 23, Anion Gap 9, Blood Urea Nitrogen 8, Creatinine 1.00, Estimat Glomerular Filtration Rate > 60, BUN/Creatinine Ratio 8, Glucose Level 97, Calcium Level 8.6, Troponin I < 0.028, Triglycerides Level 136, Cholesterol Level 114, LDL Cholesterol Direct 71, VLDL Cholesterol 27, HDL Cholesterol 25L Laboratory Tests 12/23/19 19:28 12/24/19 03:05 A/P-Cardiology Assessment/Admission Diagnosis Chest pain of undetermined etiology, no evidence of acute coronary syndrome Coronary artery disease. Card cath of 02/06/16 showed CAD primarily consisting of 80% proximal and mid vessel stenosis of the left anterior descending artery to which successful stenting was carried out using Alpine Xience 2.25 x 12 mm stent that reduced the stenosis to 0% residual. The left circumflex and ramus intermedius arteries have mild to moderate disease. Right coronary is dominant and has 50% distal stenosis, LVEF 60%, normal LVEDP, no MR. MPI of October 08, 2019 is suggestive of a small inferoapical infarction with mild rachel-infarct ischemia. 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 Currently smoking 1 ppd H/o Guillian-[place] in 2007 Bilat foot discomfort, chronic, diagnosed as peripheral neuropathy H/o hypokalemia on HCTZ Admission Status: Observation Discussion and Recomendations * He feels well and wishes to go home. Does not wish to stay for any further work up * We reviewed his CV issues and advised risk factor mod and continuation of previous regimen and return to ER in case of recurrence of symptoms or new symptoms * Advised f/u at our office next week. He wishes to wait till Jan 06 when he is scheduled to come in for office visit. Will come in earlier if he feels the need to do that Clinical Quality Measures AMI/AHF: ASA po Prior to arrival: No DVT/VTE Risk/Contraindication: Risk Factor Score Per Nursin RFS Level Per Nursing on Admit: 3=High ALISSON MENARD MD FACP FAC CCDS Dec 24, 2019 09:57
--- NOTE | 2019-12-24 10:02 | Discharge Inst-Cardiology ---
Discharge Inst-Cardiac Discharge Medications Continued Medications: Aspirin (Aspirin EC) 81 Mg Tablet.dr 81 MG PO DAILY, TAB Atorvastatin Calcium (Lipitor) 80 Mg Tablet 80 MG PO HS, TAB Clopidogrel Bisulfate (Plavix) 75 Mg Tablet 75 MG PO HS, TAB Fenofibrate (Fenofibrate 54 Mg) 54 Mg Tablet 54 MG PO HS, TAB Fluticasone Propionate (Flonase Allergy Relief) 9.9 Ml [place].susp 2 SPRAYS NS DAILY PRN for ALLERGIES, SPRAY Gabapentin (Gabapentin) 400 Mg Capsule 800 MG PO QID, CAP TAKES 2 (400 MG) CAPSULES Lisinopril (Lisinopril) 10 Mg Tablet 10 MG PO HS, TAB Methocarbamol (Methocarbamol) 500 Mg Tablet 500 MG PO DAILY PRN for MUSCLE SPASMS, TAB Metoprolol Succinate (Toprol Xl) 25 Mg Tab.er.24h 25 MG PO DAILY, TAB Omeprazole (Omeprazole) 40 Mg Capsule.dr 40 MG PO DAILY PRN for HEARTBURN, CAP Tramadol HCl (Tramadol HCl) 50 Mg Tablet 50-100 MG PO TID PRN for PAIN, TAB Patient Instructions Patient Instructions: F/u with Dr Mathews in 1-2 weeks ARIADNA MATHEWS MD FACP FAC CCDS Dec 24, 2019 10:02
--- NOTE | 2019-12-24 10:03 | Cardiology Discharge Summary ---
Diagnosis/Chief Complaint Date of Admission Dec 23, 2019 at 20:39 Date of Discharge 12/24/19 Final/Discharge Diagnosis Chest pain of undetermined etiology, no evidence of acute coronary syndrome Coronary artery disease. Card cath of 02/06/16 showed CAD primarily consisting of 80% proximal and mid vessel stenosis of the left anterior descending artery to which successful stenting was carried out using Alpine Xience 2.25 x 12 mm stent that reduced the stenosis to 0% residual. The left circumflex and ramus intermedius arteries have mild to moderate disease. Right coronary is dominant and has 50% distal stenosis, LVEF 60%, normal LVEDP, no MR. MPI of October 08, 2019 is suggestive of a small inferoapical infarction with mild rachel-infarct ischemia. 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 Currently smoking 1 ppd H/o Guillian-[place] in 2007 Bilat foot discomfort, chronic, diagnosed as peripheral neuropathy H/o hypokalemia on HCTZ Chief Complaint/HPI Chief Complaint/HPI CC: Chest discomfort HPI: 64 yo man admitted through ER yesterday evening with two days of continuous discomfort, R & L parasternal, mild to mod, unrelated to exertion, pressure like, w/o aggravating or relieving factors, w/o radiation. This has gradually dissipated. He feels well now and wishes to go home. He denies shortness of breath or palp or syncope or swelling. Discharge Summary Procedures None. Hospital Course Pending Labs Laboratory Tests 12/24/19 03:05: White Blood Count 8.6, Red Blood Count 5.01, Hemoglobin 14.7, Hematocrit 45, Mean Corpuscular Volume 89, Mean Corpuscular Hemoglobin 29, Mean Corpuscular Hemoglobin Concent 33, Red Cell Distribution Width 13.0, Platelet Count 196, Mean Platelet Volume 11.2, Immature Granulocyte % (Auto) 0, Neutrophils (%) (Auto) 52, Lymphocytes (%) (Auto) 35, Monocytes (%) (Auto) 8, Eosinophils (%) (Auto) 5, Basophils (%) (Auto) 0, Neutrophils # (Auto) 4.5, Lymphocytes # (Auto) 3.0, Monocytes # (Auto) 0.7, Eosinophils # (Auto) 0.4, Basophils # (Auto) 0.0, Immature Granulocyte # (Auto) 0.0, Sodium Level 139, Potassium Level 3.8, Chloride Level 107, Carbon Dioxide Level 23, Anion Gap 9, Blood Urea Nitrogen 8, Creatinine 1.00, Estimat Glomerular Filtration Rate > 60, BUN/Creatinine Ratio 8, Glucose Level 97, Calcium Level 8.6, Troponin I < 0.028, Triglycerides Level 136, Cholesterol Level 114, LDL Cholesterol Direct 71, VLDL Cholesterol 27, HDL Cholesterol 25 Discussion & Recommendations Home Medications Reviewed patient Home Medication Reconciliation performed by pharmacy medication reconciliations elevator technician and/or nursing. Patients Allergies have been reviewed. Discharge Home Medications: Reviewed and agree with Discharge Medication list on patient's Discharge Instruction sheet Clinical Quality Measures AMI/AHF: ASA po Prior to arrival: No DVT/VTE Risk/Contraindication: Risk Factor Score Per Nursin RFS Level Per Nursing on Admit: 3=High ARIADNA MENARD MD FACP FAC CCDS Dec 24, 2019 10:03
[2019-12-24] MEDS ORDERED: ATOR10TA66 PO (10:12)
== END 2019-12-24 10:48 | disposition home or self-care (01) ==
LOC: EDUNIT# 18:48 → ER 18:49 → CSD 20:39
PROVIDERS: ADMIT Internal Medicine; ATTEND Internal Medicine
DX: I25.10 Atherosclerotic heart disease of native coronary artery without angina pectoris (principal); I65.29 Occlusion and stenosis of unspecified carotid artery; I10 Essential (primary) hypertension; E78.5 Hyperlipidemia, unspecified; E78.00 Pure hypercholesterolemia, unspecified; F17.210 Nicotine dependence, cigarettes, uncomplicated; Z79.82 Long term (current) use of aspirin; Z79.899 Other long term (current) drug therapy; Z95.5 Presence of coronary angioplasty implant and graft; Z20.828 Contact with and (suspected) exposure to other viral communicable diseases
CPT/HCPCS: 71045; 80048; 80053; 80061; 83615; 83735; 83874; 83880; 84484 ×2; 85025 ×2; 85379; 85610; 85730; 86141; 93005 ×2; 93041; 99284; G0378; U0002; 36415; 87635